=== PATIENT | male | born 1950 | race Caucasian/White ===

== ENCOUNTER 2020-03-17 04:58 | Observation (INO) | payer MEDICARE, OTHER, SELFPAY ==
[~2020-03-17] VITALS: Ht 180.3 cm; Wt 125.2 kg
[2020-03-17] MEDS ORDERED: HYDR-3245 PO (05:13)
[2020-03-17] MEDS ORDERED: CYCL-259 PO (05:13)
--- NOTE | 2020-03-17 05:14 | NUR ---
pt bib remsa from work at [facility] after feeling like he "had a bubble in his chest" and got pale, diaphoretic, and had a syncopal episode from chair. pt states hx of mi in 96. otherwise no significant cardiac history. pt appears pale and slight diaphorectic, skin feels cool and clammy. pt resting on gurney, nad, provided warm blankets for comfort, bairon conti md at bs for eval. pt placed on spo2/bp/ecg monitoring at this time nitro .4 enroute and 324 asa
[2020-03-17] MEDS ORDERED: ONDANSETRON 2MG/ML, 2ML ONE (05:17)
[2020-03-17] MEDS ORDERED: MORPHINE SULFATE 4 MG/ML, 1ML ONE (05:18)
[2020-03-17] MEDS ORDERED: SODIUM CHLORIDE FLUSH 10ML SYR IVF ONE (05:30)
[2020-03-17] MEDS ORDERED: MORPHINE SULFATE 4 MG/ML, 1ML IVPush PRN (05:30)
[2020-03-17] MEDS ORDERED: ONDANSETRON 2MG/ML, 2ML IVPush ONE (05:30)
[2020-03-17 05:47] LABS: ALBUMIN 3.4 g/dL (3.4-5.0); ANION GAP 6 mmol/L (5-15); CALCIUM 9.1 mg/dL (8.5-10.1); CHLORIDE 113 mmol/L (98-107)
[2020-03-17 05:53] LABS: ALANINE AMINOTRANSFERASE 23 U/L (12-78); ALKALINE PHOSPHATASE 80 U/L (45-117); BILIRUBIN,TOTAL 0.4 mg/dL (0.2-1.0); TOTAL PROTEIN 7.2 g/dL (6.4-8.2); TROPONIN I < 0.015 ng/mL (0.000-0.045)
[2020-03-17 05:56] LABS: BASOPHILS % (AUTO) 1 % (0-1); EOSINOPHILS % (AUTO) 2 % (1-7); LYMPHOCYTES % (AUTO) 17 % (22-44); MEAN CORPUSCULAR HEMOGLOBIN 28.9 pg (27.5-34.5); MEAN CORPUSCULAR HGB CONC 33.8 g/dL (33.2-36.2); MEAN PLATELET VOLUME 9.3 fL (7.4-10.4); MONOCYTES % (AUTO) 11 % (2-9); NEUTROPHILS % (AUTO) 70 % (42-75); PLATELET COUNT 308 x10^3/uL (130-400); RED BLOOD COUNT 4.84 x10^6/uL (4.38-5.82); RED CELL DISTRIBUTION WIDTH 13.9 % (9.4-14.8)
[2020-03-17 06:12] LABS: MD NO
--- NOTE | 2020-03-17 06:41 | NUR ---
PT RESTING ON GURNEY, NAD, APPEARS COMFORTABLE, EYES CLOSED, EVEN AND UNLABORED REPSIRATIONS, WHEN RESTING O2 SAT DECREASING TO 89%, PT PLACED ON 2L NC AND NOW AT 94%. WCTM. WAITING FOR ADMIT ORDERS.
--- NOTE | 2020-03-17 06:59 | NUR ---
bedside report to jluis aponte, pt care transferred at this time.
[2020-03-17] MEDS ORDERED: SODIUM CHLORIDE FLUSH 10ML SYR IVF PRN (07:00)
--- NOTE | 2020-03-17 07:00 | NUR ---
[facility] RPT REC'D AND ASSUMED PT CARE. CALL LIGHT W/I REACH, VSS AND NAD NOTED.
--- NOTE | 2020-03-17 09:00 | NUR ---
[facility] AT BEDSIDE, POC DISCUSSED AND QUESTIONS ANSWERED.
--- NOTE | 2020-03-17 09:17 | NUR ---
PT ASSESSMENT NOTED. PT OOB AND AMBULATED TO BATHROOM, UPRIGHT LIMPING GAIT. PT STATES HE WEARS A BRACE ON HIS RIGHT KNEE AND CAUSES HIM TO LIMP. PT DENIES WANTING ORAL CARE PRODUCTS AT THIS TIME. PT COMPLETED BATHROOM AND SAT AT NURSES STATION TO USE PHONE TO CALL HIS SON. PT RTD TO ROOM W/O INCIDENT. HOSPITAL BED EXCHANGED FOR YOHANNES. PT TOLLERATED ACTIVITY WELL AND RA SP02 = 94% WILL LEAVE P[T ON RA AND CONTINUE TO MONITOR. CALL LIGHT W/I REACH.
[2020-03-17] MEDS ORDERED: NITROGLYCERIN 0.4 MG/SPRAY SL PRN (09:30)
[2020-03-17] MEDS ORDERED: NITROGLYCERIN 0.4 MG BOTTLE (25 TABS) SL PRN (09:30)
[2020-03-17] MEDS ORDERED: CYCLOBENZAPRINE 10 MG TABLET PO PRN (09:30)
[2020-03-17] MEDS ORDERED: ONDANSETRON ODT 4 MG PO PRN (09:30)
[2020-03-17] MEDS ORDERED: ACETAMINOPHEN 325 MG TABLET PO PRN (09:30)
[2020-03-17 09:54] LABS: TROPONIN I < 0.015 ng/mL (0.000-0.045)
[2020-03-17] MEDS ORDERED: FAMOTIDINE 20 MG TABLET ONE (10:07)
[2020-03-17] MEDS ORDERED: ENOXAPARIN 40 MG/0.4 ML ONE (10:07)
[2020-03-17] MEDS ORDERED: HYDROcodone/APAP 10/325 MG TABLET ONE ×2 (10:08→16:33)
[2020-03-17] MEDS: ENOXAPARIN 40 MG/0.4 ML SQ SCH (10:10)
[2020-03-17] MEDS: FAMOTIDINE 20 MG TABLET PO SCH ×2 (10:10→22:01)
[2020-03-17] MEDS: HYDROcodone/APAP 10/325 MG TABLET PO PRN ×2 (10:11→16:34)
--- NOTE | 2020-03-17 12:08 | NUR ---
SPOKE WITH DR RIZVI RE: ORDER FOR EKG STRESS TEST. PT UNABLE TO AMBULATE WELL ENOUGH TO DO EKG STRESS. ORDER CANCELLED AND SHA SCAN TEST ORDERED.
--- NOTE | 2020-03-17 12:33 | NUR ---
MEAL TRAY PROVIDED AND SET UP FOR PT. VSS, PAIN 05/15. PLAN FOR SHA SCAN TOMORROW AND NPO AFTER MIDNIGHT TONIGHT DISCUSSED AND QUESTIONS ANSWERED
--- NOTE | 2020-03-17 13:30 | NUR ---
PT ATE APPROX 90% OF NOON MEAL.
--- NOTE | 2020-03-17 14:45 | NUR ---
PT RESTING ON YOHANNES. VSS. NAD. C/O 06/12 BACK PAIN. DENIES NEED FOR PAIN MEDICATION INTERVENTION AT THIS TIME. WILL CONTINUE TO MONITOR
[2020-03-17 15:38] LABS: TROPONIN I < 0.015 ng/mL (0.000-0.045)
--- NOTE | 2020-03-17 16:31 | NUR ---
DINNER TRAY PROVIDED AND SET UP FOR PT. TROP VALUES REVIEWED AND QUESTIONS ANSWERED. PT VSS, PAIN 5/10, WILL MED NOTED PER PT REQUEST. CALL LIGHT W/I REACH.
--- NOTE | 2020-03-17 16:48 | NUR ---
PT GAVE VERBAL AUTHORIZATION TO THIS RN TO DISCUSS HIS STATUS AND POC WITH HIS SON. POC DISCUSSED AND QUESTIONS ANSWERED.
--- NOTE | 2020-03-17 17:25 | NUR ---
PT ATE 100% OF DINNER.
[2020-03-17 17:58] VITALS: BP 132/76
[2020-03-17 19:41] VITALS: BP 116/71
[2020-03-18 00:52] VITALS: BP 145/69
[2020-03-18] MEDS: HYDROcodone/APAP 10/325 MG TABLET PO PRN ×2 (00:55→10:26)
[2020-03-18 05:30] LABS: BASOPHILS % (AUTO) 1 % (0-1); EOSINOPHILS % (AUTO) 2 % (1-7); LYMPHOCYTES % (AUTO) 28 % (22-44); MD NO; MEAN CORPUSCULAR HEMOGLOBIN 28.9 pg (27.5-34.5); MEAN CORPUSCULAR HGB CONC 33.5 g/dL (33.2-36.2); MEAN PLATELET VOLUME 9.5 fL (7.4-10.4); MONOCYTES % (AUTO) 11 % (2-9); NEUTROPHILS % (AUTO) 59 % (42-75); PLATELET COUNT 273 x10^3/uL (130-400); RED BLOOD COUNT 4.64 x10^6/uL (4.38-5.82)
[2020-03-18 05:40] LABS: ANION GAP 3 mmol/L (5-15); CALCIUM 8.5 mg/dL (8.5-10.1); CHLORIDE 112 mmol/L (98-107)
[2020-03-18 05:45] LABS: CHOL/HDL RATIO 3.4; CHOLESTEROL, TOTAL 170 mg/dL (140-239); CREATININE 1.23 mg/dL (0.7-1.3); HDL CHOL % 29 % (26-37); HDL CHOLESTEROL (DIRECT) 50 mg/dL (40-60); LDL CHOLESTEROL,CALCULATED 95 mg/dL (54-169); LDL/HDL RATIO 1.9 (0.5-3.0); TRIGLYCERIDES 125 mg/dL (50-200); VLDL CHOLESTEROL 25 mg/dL (0-25)
[2020-03-18] MEDS ORDERED: ASPIRIN 81 MG TABLET EC PO SCH (06:00)
[2020-03-18 07:26] VITALS: BP 122/76
[2020-03-18] MEDS ORDERED: REGADENOSON 0.4 MG/5 ML SYRINGE ONE (07:50)
[2020-03-18] MEDS ORDERED: FAMOTIDINE 40 MG TABLET ONE (08:13)
[2020-03-18] MEDS: FAMOTIDINE 20 MG TABLET PO SCH (08:15)
[2020-03-18] MEDS: ENOXAPARIN 40 MG/0.4 ML SQ SCH (08:15)
[2020-03-18 12:50] VITALS: BP 125/74
[2020-03-18] MEDS ORDERED: ASPI81TA45 PO (14:09)
[2020-03-18] MEDS ORDERED: SIMV20TA19 PO (14:09)
== END 2020-03-18 15:35 | disposition home or self-care (01) ==
LOC: ED 06:08 → INTOOBSV 06:50 → EDIP 06:50 → 5SO 17:57 → DCLOUNGE 03-18 15:25
PROVIDERS: ADMIT Internal Medicine; ATTEND Internal Medicine
DX: R07.89 Other chest pain (principal); I25.110 Atherosclerotic heart disease of native coronary artery with unstable angina pectoris; R06.00 Dyspnea, unspecified; R55 Syncope and collapse; Q60.0 Renal agenesis, unilateral; M15.9 Polyosteoarthritis, unspecified; E78.5 Hyperlipidemia, unspecified; I44.7 Left bundle-branch block, unspecified; I25.2 Old myocardial infarction; E66.9 Obesity, unspecified; Z79.891 Long term (current) use of opiate analgesic; Z79.82 Long term (current) use of aspirin; Z85.528 Personal history of other malignant neoplasm of kidney; Z90.5 Acquired absence of kidney; Z79.899 Other long term (current) drug therapy; Z51.5 Encounter for palliative care
CPT/HCPCS: 36415; 71045; 78452; 80048; 80053; 80061; 83690; 83880; 84484; 85025; 93017; 96372; 96374; 96375; 99284; A9502; G0378; J1650; J2270; J2405; J2785

== ENCOUNTER 2020-04-03 14:21 | Emergency (ER) | payer MEDICARE ==
[~2020-04-03] VITALS: Ht 180.3 cm; Wt 127.1 kg
[~2020-04-03 14:21] MED LIST: ASPI81TA45 PO; CYCL-259 PO; HYDR-3245 PO; SIMV20TA19 PO
[2020-04-03] MEDS ORDERED: OXYcodone/APAP 5/325MG TABLET ONE (14:38)
--- NOTE | 2020-04-03 14:50 | NUR ---
ICE PACK PROVIDED TO PTNicole POTTER'WD WITH PT.
--- NOTE | 2020-04-03 14:50 | NUR ---
PT AMBULATED TO BR WITHOUT DIFFICULTY.
[2020-04-03] MEDS ORDERED: OXYcodone/APAP 5/325MG TABLET PO ONE (15:00)
--- NOTE | 2020-04-03 15:04 | NUR ---
Report from Jaclyn [facility].
[2020-04-03 15:10] VITALS: BP 151/84
--- NOTE | 2020-04-03 15:11 | NUR ---
RN at bedside, provider at bedside. Pt denies needs at this time.
--- NOTE | 2020-04-03 15:26 | NUR ---
PT AMBULATING TO XR WITH SENIOR CONTROLS ANALYST.
--- NOTE | 2020-04-03 16:32 | NUR ---
D/C INSTRUCTIONS & F/U APPT PROVIDED TO PT BY ASSIST RN. PT AMBULATED OUT WITHOUT DIFFICULTY.
== END 2020-04-03 16:11 | disposition home or self-care (01) ==
LOC: ED 15:34
DX: S40.011A Contusion of right shoulder, initial encounter (principal); G89.29 Other chronic pain; M54.2 Cervicalgia; W01.0XXA Fall on same level from slipping, tripping and stumbling without subsequent striking against object, initial encounter; Y93.01 Activity, walking, marching and hiking; Y92.488 Other paved roadways as the place of occurrence of the external cause; Y99.8 Other external cause status
CPT/HCPCS: 72125; 99284

== ENCOUNTER 2020-04-14 18:23 | Emergency (ER) | payer MEDICARE ==
[~2020-04-14] VITALS: Ht 180.3 cm; Wt 130.9 kg
--- NOTE | 2020-04-14 18:52 | NUR ---
report recevied from Scotty aponte
[2020-04-14 18:57] LABS: BASOPHILS % (AUTO) 1 % (0-1); EOSINOPHILS % (AUTO) 2 % (1-7); LYMPHOCYTES % (AUTO) 20 % (22-44); MEAN PLATELET VOLUME 9.1 fL (7.4-10.4); MONOCYTES % (AUTO) 13 % (2-9); NEUTROPHILS % (AUTO) 65 % (42-75); PLATELET COUNT 281 x10^3/uL (130-400); RED BLOOD COUNT 4.85 x10^6/uL (4.38-5.82)
[2020-04-14 18:59] LABS: MD NO
[2020-04-14] MEDS ORDERED: SODIUM CHLORIDE FLUSH 10ML SYR IVF ONE (19:00)
[2020-04-14 19:10] LABS: ALBUMIN 3.4 g/dL (3.4-5.0); ANION GAP 6 mmol/L (5-15); CALCIUM 8.8 mg/dL (8.5-10.1); CHLORIDE 112 mmol/L (98-107)
[2020-04-14 19:16] LABS: ALANINE AMINOTRANSFERASE 21 U/L (12-78); ALKALINE PHOSPHATASE 78 U/L (45-117); BILIRUBIN,TOTAL 0.3 mg/dL (0.2-1.0); TOTAL PROTEIN 7.2 g/dL (6.4-8.2); TROPONIN I < 0.015 ng/mL (0.000-0.045)
[2020-04-14] MEDS ORDERED: NITROGLYCERIN OINT 2%, 1GM TP ONE ×2 (19:30→19:49)
[2020-04-14] MEDS ORDERED: MORPHINE SULFATE 4 MG/ML, 1ML IVPush PRN (19:30)
--- NOTE | 2020-04-14 19:38 | NUR ---
pt to imaging
[2020-04-14] MEDS ORDERED: MORPHINE SULFATE 4 MG/ML, 1ML ONE (19:49)
--- NOTE | 2020-04-14 20:47 | NUR ---
pt states he feels free of chest pain and pressure
[2020-04-14 21:28] VITALS: BP 157/84
--- NOTE | 2020-04-14 21:30 | NUR ---
pt ambulatory with steady gait.
[2020-04-14] MEDS ORDERED: OMNIPAQUE 350 MG/ML, 100ML BOTTLE ONE (22:10)
== END 2020-04-14 21:36 | disposition home or self-care (01) ==
LOC: ED 19:15
DX: R07.2 Precordial pain (principal); R94.31 Abnormal electrocardiogram [ECG] [EKG]; I25.10 Atherosclerotic heart disease of native coronary artery without angina pectoris; Z90.49 Acquired absence of other specified parts of digestive tract
CPT/HCPCS: 36415; 71045; 71275; 80053; 83880; 84484; 85025; 93005; 96374; 99285; J2270; Q9967

== ENCOUNTER 2020-05-12 06:54 | Emergency (ER) | payer MEDICARE ==
[~2020-05-12] VITALS: Ht 180.3 cm; Wt 125.0 kg
[~2020-05-12 06:54] MED LIST changes: -CYCL-259 PO; +CYCL10TA2 PO; -HYDR-3245 PO; +HYDR1TAB53 PO
--- NOTE | 2020-05-12 06:56 | NUR ---
Pt ambulatory with standby assist by EMS from EMS gurney to bed. Pt changed into gown, IV site assessed, placed on bedside monitor, and securities compliance examiner and EKG 12 lead competed.
--- NOTE | 2020-05-12 07:15 | NUR ---
at bedside for exam.
[2020-05-12] MEDS ORDERED: MORPHINE SULFATE 4 MG/ML, 1ML ONE (07:29)
[2020-05-12] MEDS ORDERED: ONDANSETRON 2MG/ML, 2ML ONE (07:29)
[2020-05-12] MEDS ORDERED: ONDANSETRON 2MG/ML, 2ML IVPush ONE (07:30)
[2020-05-12] MEDS ORDERED: SODIUM CHLORIDE FLUSH 10ML SYR IVF ONE (07:30)
[2020-05-12] MEDS ORDERED: MORPHINE SULFATE 4 MG/ML, 1ML IVPush PRN (07:30)
--- NOTE | 2020-05-12 07:37 | NUR ---
Pt medicated for pain at this time as well as for potential nausea as ordered by MD.
[2020-05-12 07:39] LABS: BASOPHILS % (AUTO) 1 % (0-1); EOSINOPHILS % (AUTO) 1 % (1-7); LYMPHOCYTES % (AUTO) 20 % (22-44); MEAN CORPUSCULAR HEMOGLOBIN 29.1 pg (27.5-34.5); MEAN CORPUSCULAR HGB CONC 33.9 g/dL (33.2-36.2); MEAN PLATELET VOLUME 9.1 fL (7.4-10.4); MONOCYTES % (AUTO) 11 % (2-9); NEUTROPHILS % (AUTO) 67 % (42-75); PLATELET COUNT 273 x10^3/uL (130-400); RED BLOOD COUNT 4.64 x10^6/uL (4.38-5.82); RED CELL DISTRIBUTION WIDTH 13.8 % (9.4-14.8)
[2020-05-12 07:42] LABS: MD NO
[2020-05-12 07:53] LABS: ALBUMIN 3.5 g/dL (3.4-5.0); ANION GAP 4 mmol/L (5-15); CHLORIDE 113 mmol/L (98-107)
[2020-05-12 07:58] LABS: CREATININE 1.25 mg/dL (0.7-1.3)
[2020-05-12 07:59] LABS: ALANINE AMINOTRANSFERASE 22 U/L (12-78); ALKALINE PHOSPHATASE 73 U/L (45-117); BILIRUBIN,TOTAL 0.4 mg/dL (0.2-1.0); TOTAL PROTEIN 7.3 g/dL (6.4-8.2); TROPONIN I < 0.015 ng/mL (0.000-0.045)
--- NOTE | 2020-05-12 08:05 | NUR ---
VS reassessed and pain reassessed after medication provided with good effect report by pt. MD at bedside to update pt to plan of care/results. Pt aware of wait for 0900 lab retest of Troponin before decision for d/c vs admission made. Pt able to call his son and update him.
[2020-05-12 09:06] LABS: TROPONIN I < 0.015 ng/mL (0.000-0.045)
--- NOTE | 2020-05-12 10:04 | NUR ---
CARE FOR DC ONLY PROVIDED. PT SITTING ON GURNEY, NO ACUTE DISTRESS NOTED. IV DC'D WITH CANNULA INTACT. REVIEWED DC INSTRUCTIONS WITH PT. UNDERSTANDING VERBALIZED. PT LEFT AMB, GAIT STEADY.
[2020-05-12 10:05] VITALS: BP 128/70
== END 2020-05-12 10:07 | disposition home or self-care (01) ==
LOC: ED 08:52
DX: I20.8 Other forms of angina pectoris (principal); R07.89 Other chest pain; I44.7 Left bundle-branch block, unspecified; Z90.49 Acquired absence of other specified parts of digestive tract; Z85.53 Personal history of malignant neoplasm of renal pelvis
CPT/HCPCS: 36415; 71045; 80053; 83880; 84484; 85025; 93005; 96374; 96375; 99285; J2270; J2405

== ENCOUNTER → 2020-06-25 | Outpatient (CLI) | payer MEDICARE ==
[~2020-06-25] MED LIST changes: +HYDROCHLOROTH12.5 MG PO; +NITR0.4T28 SL
== END | disposition home or self-care (01) ==
LOC: CVU 14:43
PROVIDERS: ATTEND Internal Medicine Cardiovascular Disease
DX: R06.02 Shortness of breath (principal); R07.89 Other chest pain
CPT/HCPCS: 93306

== ENCOUNTER 2020-06-26 10:02 | Day surgery (SDC) | payer MEDICARE ==
[~2020-06-26] VITALS: Ht 180.3 cm; Wt 128.6 kg
[~2020-06-26 10:02] MED LIST changes: -HYDROCHLOROTH12.5 MG PO; -NITR0.4T28 SL
[2020-06-26] MEDS ORDERED: LIDOCAINE-MPF 1%, 5ML ONE (11:47)
[2020-06-26] MEDS ORDERED: VERAPAMIL 2.5 MG/ML, 2ML ONE (11:47)
[2020-06-26] MEDS ORDERED: MIDAZOLAM 1 MG/ML, 2ML ONE (11:47)
[2020-06-26] MEDS ORDERED: FENTANYL PF 100 MCG/2ML ONE (11:47)
[2020-06-26] MEDS ORDERED: HEPARIN 1,000 UNITS/ML, 10ML ONE (11:48)
[2020-06-26] MEDS ORDERED: HYDROCHLOROTH12.5 MG PO (12:02)
[2020-06-26] MEDS ORDERED: NITR0.4T28 SL (12:02)
[2020-06-26 12:04] VITALS: BP 154/88
[2020-06-26 12:30] LABS: BASOPHILS % (AUTO) 1 % (0-1); EOSINOPHILS % (AUTO) 2 % (1-7); LYMPHOCYTES % (AUTO) 19 % (22-44); MEAN CORPUSCULAR HEMOGLOBIN 29.3 pg (27.5-34.5); MEAN CORPUSCULAR HGB CONC 34.3 g/dL (33.2-36.2); MONOCYTES % (AUTO) 11 % (2-9); NEUTROPHILS % (AUTO) 68 % (42-75); PLATELET COUNT 228 x10^3/uL (130-400); RED BLOOD COUNT 4.69 x10^6/uL (4.38-5.82); RED CELL DISTRIBUTION WIDTH 13.9 % (9.4-14.8)
[2020-06-26 12:31] LABS: MD NO
[2020-06-26 12:38] LABS: ANION GAP 4 mmol/L (5-15); CALCIUM 8.4 mg/dL (8.5-10.1); CHLORIDE 108 mmol/L (98-107); CREATININE 1.23 mg/dL (0.7-1.3)
== END 2020-06-26 15:20 | disposition home or self-care (01) ==
LOC: CACL 10:02
PROVIDERS: ATTEND Internal Medicine Cardiovascular Disease
DX: R07.89 Other chest pain (principal); I10 Essential (primary) hypertension; E66.9 Obesity, unspecified; Z68.41 Body mass index [BMI] 40.0-44.9, adult; Z79.899 Other long term (current) drug therapy; Z88.8 Allergy status to other drugs, medicaments and biological substances
CPT/HCPCS: 36415; 80048; 85025; 93458; C1894; J1644; J2250; J3010; Q9967; 99156

== ENCOUNTER 2020-09-16 19:05 | Emergency (ER) | payer MEDICARE ==
[~2020-09-16] VITALS: Ht 172.7 cm; Wt 135.0 kg
[~2020-09-16 19:05] MED LIST changes: +HYDROCHLOROTH12.5 MG PO; +NITR0.4T28 SL
[2020-09-16] MEDS ORDERED: SODIUM CHLORIDE FLUSH 10ML SYR IVF ONE (19:30)
[2020-09-16] MEDS ORDERED: SODIUM CHLORIDE 0.9% 1,000ML IVBOLUS ONE (19:30)
[2020-09-16] MEDS ORDERED: MECLIZINE CHEWABLE 25 MG TAB PO ONE (19:30)
[2020-09-16] MEDS ORDERED: MECLIZINE CHEWABLE 25 MG TAB ONE ×2 (19:32→19:35)
[2020-09-16 19:42] LABS: BASOPHILS % (AUTO) 0 % (0-1); EOSINOPHILS % (AUTO) 1 % (1-7); LYMPHOCYTES % (AUTO) 21 % (22-44); MEAN CORPUSCULAR HEMOGLOBIN 29.8 pg (27.5-34.5); MEAN CORPUSCULAR HGB CONC 34.6 g/dL (33.2-36.2); MEAN PLATELET VOLUME 8.7 fL (7.4-10.4); MONOCYTES % (AUTO) 10 % (2-9); NEUTROPHILS % (AUTO) 68 % (42-75); PLATELET COUNT 249 x10^3/uL (130-400); RED BLOOD COUNT 4.63 x10^6/uL (4.38-5.82); RED CELL DISTRIBUTION WIDTH 13.9 % (9.4-14.8)
[2020-09-16 19:53] LABS: ALANINE AMINOTRANSFERASE 51 U/L (12-78); ALBUMIN 3.1 g/dL (3.4-5.0); ANION GAP 6 mmol/L (5-15); CALCIUM 8.4 mg/dL (8.5-10.1); CHLORIDE 107 mmol/L (98-107); CREATININE 1.33 mg/dL (0.7-1.3)
[2020-09-16 19:56] LABS: ALKALINE PHOSPHATASE 99 U/L (45-117); BILIRUBIN,TOTAL 0.5 mg/dL (0.2-1.0)
--- NOTE | 2020-09-16 20:25 | NUR ---
PT. REPORTS DIZZINESS IS GONE AFTER MED. PT. ONLY C/O BACK PAIN R/T ARTHRITIS.
--- NOTE | 2020-09-16 21:16 | NUR ---
DR. PAYAN TO FOR RE-EVAL. AT ABOUT 2049 PT. WAS ABLE TO AMBULATE DOWN JANG AND BACK TO ROOM. PT. CONTINUES TO DENY ANY DIZZINESS OR DISCOMFORT.
[2020-09-16 21:33] VITALS: BP 136/64
== END 2020-09-16 21:49 | disposition home or self-care (01) ==
LOC: ED 20:33
DX: R42 Dizziness and giddiness (principal); R11.2 Nausea with vomiting, unspecified; R07.89 Other chest pain; I25.10 Atherosclerotic heart disease of native coronary artery without angina pectoris; I44.7 Left bundle-branch block, unspecified; Z90.49 Acquired absence of other specified parts of digestive tract
CPT/HCPCS: 36415; 80053; 83690; 85025; 93005; 96360; 99284; J7030